=== PATIENT | female | born 1980 | race African-American/Black ===

== ENCOUNTER 2019-01-27 17:04 | Emergency (ER) | payer MEDICAID, OTHER ==
--- NOTE | 2019-01-27 17:22 | Emergency Department Report ---
Blank Doc - Documentation Documentation: This is a 38-year-old female that is 6 months and followed by [employer] for care. She is not having any related issues but she says she went to urgent care and they sent her to emergency room due to high fever and her rate and nonproductive cough. Patient was given medication for fever in urgent care and her temperature is 99.1 but she is still tachycardic 107. Denies any abdominal back pain. Denies any vaginal bleeding or discharge. Denies any nausea or vomiting. Denies any headache. She said babies moving around okay. PE Lungs: Clear to auscultation bilaterally, no rhonchi wheezes or rales. his initial assessment diagnostic orders/clinical plan/treatment (s) is/Are subject change based on patient's health status, clinical progression and re- assessment by fellow clinical providers in the ED. Further treatment and work-up at subsequent clinical providers discetion. Patient/guardians urged not to elope from s their condition may be serious if not clinically assessed and managed. Inital order include:Labs, xray
[2019-01-27 18:04] LABS: Bilirubin,Urine NEG (Negative); Blood,Urine NEG (Negative); Color,Urine Yellow (Yellow); Mucus,Urine FEW /HPF; Protein,Urine <15 mg/dL mg/dL (Negative); Urobilinogen,Urine < 2.0 mg/dL (<2.0)
[2019-01-27 18:05] LABS: HCG Qualitative,Urine Positive (Negative)
--- NOTE | 2019-01-27 18:33 | Emergency Department Report ---
- General Chief Complaint: Fever Stated Complaint: 6 MOS /FEVER SENT BY URGENT CARE Time Seen by Provider: 01/27/19 17:21 Source: patient Mode of arrival: Ambulatory Limitations: No Limitations - History of Present Illness Initial Comments: 38-year-old female, 6 months , reports 2 day history of fever, headache, sore throat, cough, and body aches. Patient initially seen at an urgent care, but was sent to ER for further workup. Tylenol was given at urgent care prior to ED arrival. Patient reports active movement. Denies abdominal pain, vaginal bleeding MD Complaint: fever, cough, sore throat -: days(s) (2) Severity: moderate Improves With: NSAID Worsens With: nothing Associated Symptoms: fever, myalgias, headache, sore throat, cough. denies: chest pain, shortness of breath, abdominal pain, vomiting, diarrhea - Related Data Home Medications Medication Instructions Recorded Confirmed Last Taken Acetaminophen/Codeine [Tylenol #3] 2 tab PO Q4H PRN 12/21/13 12/21/13 Unknown Adalimumab [Humira] 40 mg IM QMONTH 12/21/13 12/21/13 Unknown Clindamycin HCl [Clindamycin Oral] 300 mg PO Q6H 12/21/13 12/21/13 12/20/13 21:00 Folic Acid [Folvite] 1 mg PO DAILY 12/21/13 12/21/13 12/20/13 09:00 Ibuprofen [Motrin] 800 mg PO Q6H 12/21/13 12/21/13 12/20/13 22:00 Methotrexate Sodium [Methotrexate] 20 mg PO QWEEK 12/21/13 12/21/13 12/18/13 Previous Rx's Medication Instructions Recorded Last Taken Type Oxycodone HCl/Acetaminophen 1 each PO Q6HR PRN #16 tablet 12/21/13 Unknown Rx [Percocet 10-325 mg] Azithromycin [Zithromax Tri-Suhas] 500 mg PO QDAY #3 tablet 01/27/19 Unknown Rx Oseltamivir [Tamiflu] 75 mg PO BID #9 cap 01/27/19 Unknown Rx Allergies Allergy/AdvReac Type Severity Reaction Status Date / Time No Known Allergies Allergy Verified 12/21/13 04:26 ED Review of Systems ROS: Stated complaint: 6 MOS /FEVER SENT BY URGENT CARE Other details as noted in HPI ED Past Medical Hx - Past Medical History Hx Arthritis: Yes - Social History Smoking Status: Never Smoker Substance Use Type: None - Medications Home Medications: Home Medications Medication Instructions Recorded Confirmed Last Taken Type Acetaminophen/Codeine [Tylenol #3] 2 tab PO Q4H PRN 12/21/13 12/21/13 Unknown History Adalimumab [Humira] 40 mg IM QMONTH 12/21/13 12/21/13 Unknown History Clindamycin HCl [Clindamycin Oral] 300 mg PO Q6H 12/21/13 12/21/13 12/20/13 21:00 History Folic Acid [Folvite] 1 mg PO DAILY 12/21/13 12/21/13 12/20/13 09:00 History Ibuprofen [Motrin] 800 mg PO Q6H 12/21/13 12/21/13 12/20/13 22:00 History Methotrexate Sodium [Methotrexate] 20 mg PO QWEEK 12/21/13 12/21/13 12/18/13 History Oxycodone HCl/Acetaminophen 1 each PO Q6HR PRN #16 tablet 12/21/13 Unknown Rx [Percocet 10-325 mg] Azithromycin [Zithromax Tri-Suhas] 500 mg PO QDAY #3 tablet 01/27/19 Unknown Rx Oseltamivir [Tamiflu] 75 mg PO BID #9 cap 01/27/19 Unknown Rx ED Physical Exam - General Limitations: No Limitations General appearance: alert, in no apparent distress - Head Head exam: Present: atraumatic, normocephalic - Eye Eye exam: Present: normal appearance - ENT ENT exam: Present: mucous membranes moist - Neck Neck exam: Present: normal inspection - Respiratory Respiratory exam: Present: normal lung sounds bilaterally. Absent: respiratory distress - Cardiovascular Cardiovascular Exam: Present: normal rhythm, tachycardia - GI/Abdominal GI/Abdominal exam: Present: soft, other (gravid abdomen). Absent: tenderness - Extremities Exam Extremities exam: Present: normal inspection - Neurological Exam Neurological exam: Present: alert, oriented X3 - Psychiatric Psychiatric exam: Present: normal affect, normal mood - Skin Skin exam: Present: warm, dry, intact, normal color ED Course Vital Signs 01/27/19 01/27/19 01/27/19 17:10 19:09 20:09 Temperature 99.1 F Pulse Rate 107 H Respiratory 22 16 16 Rate Blood Pressure 102/64 Blood Pressure 103/61 108/64 [Right] O2 Sat by Pulse 97 98 98 Oximetry ED Medical Decision Making - Radiology Data Radiology results: report reviewed, image reviewed CXR: 1. interstitial markings may represent bronchiolitis 2. small areas of atelectasis vs infiltrates both lung bases Radiology reports not crossing into [place] due to tech issues; results faxed to ED - Medical Decision Making 38-year-old female presents to ED with 2 day history of flulike symptoms. Patient found to be positive for influenza A. Chest x-ray shows atelectasis versus pneumonia. We will treat influenza with Tamiflu. Will also cover possible pneumonia with Zithromax. Patient no respiratory distress, appears no ntoxic. Fever improved with Tylenol, vital signs currently normal. Return precautions given. Outpatient follow-up advised. - Differential Diagnosis influenza, URI, pneumonia Critical care attestation.: If time is entered above; I have spent that time in minutes in the direct care of this critically ill patient, excluding procedure time. ED Disposition Clinical Impression: Influenza A Disposition: DC-01 TO HOME OR SELFCARE Is pt being admited?: No Condition: Stable Instructions: Influenza (ED), Pneumonia (ED) Prescriptions: Azithromycin [Zithromax Tri-Suhas] 500 mg PO QDAY #3 tablet Oseltamivir [Tamiflu] 75 mg PO BID #9 cap Referrals: NORMAN ROBBINS MD [Primary Care Provider] - 3-5 Days PRIMARY CAREMD [Referring] - 3-5 Days Time of Disposition: 20:07
[2019-01-27] MEDS ORDERED: TAMIFLU PO ONE (19:00)
[2019-01-27 20:15] VITALS: BP 108/64
--- NOTE | 2019-01-27 23:20 | XRay Report ---
PROCEDURE: XR CHEST ROUTINE 2V TECHNIQUE: PA and lateral chest radiographs were obtained. HISTORY: cough, fever COMPARISONS: None. FINDINGS: There is prominence of the interstitial markings of peribronchial thickening. This may represent hung ges of bronchiolitis. There are small patchy areas of pulmonary consolidation in both lung bases. Atelectasis versus infilt rates. There is no evidence of pneumothorax or pleural fluid collection. The cardiomediastinal silhouette is normal in appearance. The bony structures are unremarkable. IMPRESSION: 1. Prominence of the interstitial markings with peribronchial thickening which may represent changes of bronchiolitis. 2. Small areas of atelectasis versus infiltrates both lung bases. This document is electronically signed by Alley Headley MD., January 27 2019 07:38:01 PM ET
== END 2019-01-27 20:18 | disposition home or self-care (01) ==
LOC: ED 17:04
DX: O26.892 Other specified pregnancy related conditions, second trimester (principal); J10.1 Influenza due to other identified influenza virus with other respiratory manifestations; Z3A.24 24 weeks gestation of pregnancy
CPT/HCPCS: 71046; 81001; 81025; 87116; 87400; 87430